=== PATIENT | female | born 2000 | race Caucasian/White ===

== ENCOUNTER 2022-11-21 15:53 | Emergency (ER) | payer BC, SELFPAY ==
[2022-11-21 15:54] VITALS: BP 125/92; PULSE 78; RESP 16; TEMP 36.8; O2SAT 98; BMI 18.8
--- NOTE | 2022-11-21 16:35 | EX.ED.DYSGE1 ---
HPI History of Present Illness Chief Complaint: GI Bleed Informant: patient Narrative Narrative: Patient presents with diarrhea and has little bit of blood in the stool. Patient states that about 6 or 5 days ago she started with some fevers chills and diarrhea. It was never pure water but has been very soft with intermittent water and some formed stool. She is eating and drinking fine. But she states things go through her without significant amounts of digestion. She says occasionally gets a little cramping before a bowel movement but other than that has no abdominal pain at all. She had fevers for the first few days but has not had a fever for 3 to 3-1/2 days now. She has a sister who is having some similar symptoms but not blood in the stool. She is a counselor at a local camp but they are drinking normally potable water and nobody else has any symptoms at all. She has not been on antibiotics recently. [place] She has never had any abdominal surgeries. Last menstrual period was approximately a week ago and totally normal. She has no vaginal discharge or bleeding. She has no dysuria frequency urgency or any change in urination amount or color. She states she had a little bit of strings of some blood. When she wiped she had a little bit of blood on the tissue. No clots. No red stool or water. PFSH [facility] Medical History no medical history Home Medications NK 11/21/22 [History Last Taken Unknown] Allergy/AdvReac Type Severity Reaction Status Date / Time No Known Allergies Allergy Verified 11/21/22 15:55 Social History Smoking Status: Never smoker ROS ROS ED ROS Narrative A complete review of systems was performed and is negative except as documented in the history of present illness. Some specific details below. Constitutional: Fevers and chills on Wednesday and Wednesday but not really since. EYE: No visual complaints or pain. No change in eye color. ENT: No difficulty swallowing. No swelling. No pain. No GERD. CV: No chest pain or palpitations. Respiratory: No dyspnea. No hemoptysis. No difficulty taking breaths. GI: Please see history of present illness. He is eating and drinking fine. : No frequency dysuria or hematuria. Musculoskeletal: No recent trauma. No pains. Skin: No rash. Nondiaphoretic. Neuro: No weakness or numbness. Endocrine: No polyuria or polydipsia. EXAM Physical Exam Narrative Exam Narrative: CONSTITUTIONAL: Patient is nontoxic in appearance. The patient looks comfortable. HEENT: No notable trauma. Mucous membranes moist. No erosions, petechiae, thrush. EYES: No conjunctival injection. No icterus or proptosis. CARDIOVASCULAR: Regular rate and not tachycardic. Regular rhythm. No notable murmur. No JVD. RESPIRATORY: No respiratory distress. Breathing is unlabored. No wheezes. No rhonchi. No rales. No pain with a deep breath. GASTROINTESTINAL: Not distended. Bowel sounds are normal-not increased or decreased. No tenderness. No guarding. No rebound. No palpable mass. No bruit. Overall abdomen is actually quite benign. GENITOURINARY: No tenderness over the bladder. No CVA tenderness. MUSCULOSKELETAL: Atraumatic. No peripheral edema. NEUROLOGICAL: Patient is alert and appropriate. No focal deficit noted. SKIN: No noted rashes. No diaphoresis. No petechiae or purpura. PSYCHIATRIC: Patient is calm. Mood is appropriate. Const Vital Signs: 11/21/22 15:54 Temperature 98.2 F Temperature Source Temporal Pulse Rate 78 Respiratory Rate 16 Blood Pressure 125/92 H Blood Pressure Mean 103 Pulse Ox 98 Oxygen Delivery Method Room Air MDM MDM MDM Narrative Medical decision making narrative: Patient CBC is normal including hemoglobin of 14.4. Patient's electrolytes show minimal elevation of BUN to creatinine ratio but she was given IV fluids. Patient's liver function test showed no acute process. Patient's is negative. Patient's urine shows 10-25 white cells. But it is clear. No nitrites. Minimal leukocyte Estrace and it is no symptoms at all. I do not think this requires antibiotic treatment. Patient has not been able to give a stool sample here. She has had no further episodes. Patient has benign abdomen on initial and repeat exam. She is no longer having fevers. Stool is starting to get a little bit of formed to it she has had small amounts of blood but no large bleeding and her hemoglobin is stable. I do not think her exam and history warrant a CT at this time. She does have 1 uncle who had Crohn's disease but she has never had issues before. This started with a fever this now resolved. She has a sister with some similar symptoms. I think this is most likely viral. We did discuss reasons to return that would include vomiting, return of fevers, pain that recurs or localizes or any other concerns. Lab Data Attestation: I reviewed the patient's lab results. Labs: Laboratory Results - last 24 hr 11/21/22 11/21/22 16:30 17:10 WBC 6.1 RBC 4.72 Hgb 14.3 Hct 41.5 MCV 87.9 MCH 30.3 MCHC 34.5 RDW Std Deviation 37.4 RDW Coeff of Curtis 11.5 L Plt Count 246 MPV 9.4 Immature Gran % (Auto) 0.200 Neut % (Auto) 40.8 L Lymph % (Auto) 35.4 Hand % (Auto) 13.0 H Eos % (Auto) 9.9 H Baso % (Auto) 0.7 Absolute Neuts (auto) 2.5 Absolute Lymphs (auto) 2.15 Nucleated RBC % 0 Differential Comment SCANNED Sodium 140 Potassium 4.1 Chloride 109 H Carbon Dioxide 26.0 Anion Gap 5 BUN 14 Creatinine 0.69 Estim Creat Clear Calc 107.14 Est GFR (MDRD) Af Amer 136 Est GFR (MDRD) Non-Af 113 BUN/Creatinine Ratio 20.3 H Glucose 94 Calcium 9.4 Total Bilirubin 0.30 AST 54 H ALT 54 Alkaline Phosphatase 104 Total Protein 7.5 Albumin 3.5 Globulin 4.0 Albumin/Globulin Ratio 0.9 Serum , Qual NEGATIVE Urine Color Yellow Urine Clarity Clear Urine pH 6.0 Ur Specific [place] 1.025 Urine Protein 15 H Urine Glucose (UA) Normal Urine Ketones 5 H Urine Occult Blood 50 H Urine Nitrite Negative Urine Bilirubin Negative Urine Urobilinogen Normal Ur Leukocyte Esterase 25 H Urine RBC 0-5 SEEN Urine WBC 10-25 SEEN Ur Squamous Epith Cells 0-5 SEEN Urine Bacteria 0 SEEN Urine Mucus 0 SEEN Discharge Plan Triage Chief Complaint: GI Bleed ED Provider: Rocky Nolasco Dx/Rx/DC Orders Clinical Impression: Diarrhea, Blood in stool Instructions: ED Diarrhea, Unknown Cause, ED Lower GI Bleeding (Stable) Prescriptions: No Action NK Primary Care Provider: Care Physician,No Primary Referrals: Friend,Jose, DO [Med Staff - Active Staff] - 3-5 Days if not improving Care Physician,No Primary [Primary Care Provider] - Disposition Disposition: Home, Self Care
[2022-11-21 16:39] LABS: Absolute Lymphocyte Count 2.15 X10^3/uL (0.83-4.51); Absolute Neutrophil Count 2.5 X10^3/uL (2.0-7.7); Basophil# 0.04 X10^3/uL; Basophil% 0.7 % (0-1); Eosinophils% 9.9 % (0-5); Hematocrit 41.5 % (37-47); Hemoglobin 14.3 g/dL (12.0-15.0); Lymphocyte # 2.15 X10^3/ul (0.83-4.51); Lymphocyte % 35.4 % (19-41); Mean Corp Hgb Conc 34.5 g/dL (32-36); Mean Corpuscular Hgb 30.3 pg (27.0-32.0); Mean Corpuscular Volume 87.9 fL (81-99); Mean Platelet Vol. 9.4 fl (6.2-12.0); Monocyte# 0.79 X10^3/uL; NRBC Flagged by Analyzer 0 % (0-5); Neutrophil # 2.48 X10^3/uL (2.7-7.7); Neutrophil % 40.8 % (47-70); POSITIVE MORPHOLOGY YES; Platelet Count 246 K/mm3 (150-450); RBC Distribution Width CV 11.5 % (11.6-14.6); RBC Distribution Width SD 37.4 fl (35.1-43.9); Red Blood Count 4.72 M/mm3 (4.2-5.4); White Blood Count 6.1 K/mm3 (4.4-11.0)
[2022-11-21 16:47] LABS: Differential Indicated SCAN CRITERIA MET
[2022-11-21 16:52] LABS: Internal QC Validated? YES +Cl - CLEAR BKGD; Pregnancy, Serum, hCG Quali. NEGATIVE Negative
[2022-11-21 16:58] LABS: ALB/GLOB Ratio 0.9 RATIO (0.9-2.4); AST(SGOT) 54 U/L (15-37); Alanine Aminotransfer ALT/SGPT 54 U/L (13-56); Albumin, Serum 3.5 g/dL (3.2-5.0); Alkaline Phosphatase 104 U/L (45-117); Anion Gap 5 (5-15); BUN 14 mg/dL (7-18); BUN/Creat Ratio 20.3 RATIO (10-20); Calcium,Total 9.4 mg/dL (8.5-10.1); Chloride 109 mmol/L (98-107); Creatinine, Serum 0.69 mg/dL (0.55-1.02); EST Glomerular Filtration Rate 113 mL/min (>60); Est Glom Filt Rate - Afr Amer 136 mL/min (>60); Estimated Creatinine Clearance 107.14 ml/min; Glucose 94 mg/dL (74-106); Potassium 4.1 mmol/L (3.5-5.1); Protein, Total 7.5 g/dL (6.4-8.2); Sodium Level 140 mmol/L (136-145)
[2022-11-21 17:06] LABS: Differential Comment SCANNED
[2022-11-21] MEDS: 0.9% Normal Saline 1,000 ML 1000 ML IV (17:37)
[2022-11-21 17:46] LABS: Bacteria 0 SEEN /hpf (None Seen); Mucous, Urine 0 SEEN /hpf (<or=2+)
[2022-11-21 17:47] LABS: Color, Urine Yellow (Yellow); Glucose, Dipstick Normal (Normal); Ketone-Dipstick 5 mg/dl (Negative); Leukocyte Esterase-Dipstick 25 /ul (Negative); Nitrite-Dipstick Negative (Negative); Occult Blood-Urine 50 /ul (Negative); Protein-Dipstick 15 mg/dl (Negative); Specific Gravity, Urine 1.025 (1.002-1.030); Urine Bilirubin Dipstick Negative (Negative); Urine Clarity Clear (Clear); Urine Urobilinogen Normal (Normal)
[2022-11-21 18:03] LABS: White Blood Cells 10-25 SEEN /hpf (0-5)
[2022-11-21 18:04] LABS: Red Blood Cells-Urine 0-5 SEEN /hpf (0-5); Squamous Epithelial Cells - UA 0-5 SEEN /hpf (5-10)
[2022-11-21 18:38] VITALS: BP 97/67; PULSE 74; RESP 16; O2SAT 99
== END 2022-11-21 18:39 | disposition home or self-care (01) ==
PROVIDERS: Emergency Provider Emergency Medicine; Visit Provider Emergency Medicine
DX: R19.7 Diarrhea, unspecified (principal); K92.1 Melena
CPT/HCPCS: 80053; 81001; 83630; 84703; 85025; 87177; 87209; 87493; 87506; 96360; 99283; J7030; A4216